=== PATIENT | female | born 1950 | race Caucasian/White ===

== ENCOUNTER 2020-06-05 23:02 | Emergency (ER) | payer MEDICARE ==
[~2020-06-05 23:02] MED LIST: AUGMENTIN 875-1 EACH PO; COLESTID 1GM TAB1 GM PO; K-DUR20 MEQ PO; LASIX20 MG PO; LASIX40 MG PO; LEVOTHYROXINE137 MCG PO; MEDROL 4MG DOSEP4 MG PO; MELOXICAM15 MG PO; METOPROLOL SUCC25 MG PO; OMEPRAZOLE40 MG PO; PERCOCET 10/321 EACH PO; ROBAXIN500 MG PO; TAMIFLU75 MG PO; TESSALON PERLE100 M1 PO; ZOLOFT100 MG PO; ZOLPIDEM 10MG T10 MG PO
[2020-06-06 00:48] LABS: ALBUMIN 3.7 g/dL (3.4-5.0); BILIRUBIN - TOTAL 0.9 mg/dL (0.2-1.0); BUN/CREAT RATIO (CALC) 22.2 RATIO; C-REACTIVE PROTEIN 0.8 mg/dL (<=0.90); CREATININE 0.81 mg/dL (0.51-0.95); GLOBULIN (CALCULATION) 3.5 g/dL; POTASSIUM 4.2 mmol/L (3.5-5.1); TOTAL PROTEIN 7.2 g/dL (6.4-8.2)
[2020-06-06] MEDS ORDERED: FLEXERIL5 MG PO (01:45)
== END 2020-06-06 02:03 | disposition home or self-care (01) ==
LOC: FER 23:02
PROVIDERS: Emergency Medicine
DX: M50.01 Cervical disc disorder with myelopathy, high cervical region (principal); M50.11 Cervical disc disorder with radiculopathy, high cervical region
CPT/HCPCS: 36415; 72125; 80053; 84145; 86140; 93005; J1170; J2060; J2405; J7030

== ENCOUNTER 2020-08-26 09:55 | Emergency (ER) | payer OTHER, MEDICARE ==
[~2020-08-26 09:55] MED LIST changes: +FLEXERIL5 MG PO
[2020-08-26] MEDS ORDERED: ATIVAN0.5 MG PO (14:56)
[2020-08-26] MEDS ORDERED: ANTIVERT25 MG PO (14:56)
== END 2020-08-26 15:00 | disposition home or self-care (01) ==
LOC: FER 09:55
DX: S13.4XXA Sprain of ligaments of cervical spine, initial encounter (principal); S23.3XXA Sprain of ligaments of thoracic spine, initial encounter; F41.9 Anxiety disorder, unspecified; I50.9 Heart failure, unspecified; Z79.899 Other long term (current) drug therapy; V49.40XA Driver injured in collision with unspecified motor vehicles in traffic accident, initial encounter; Y92.410 Unspecified street and highway as the place of occurrence of the external cause
CPT/HCPCS: 72072; 72125; 93005

== ENCOUNTER 2021-01-06 17:10 | Emergency (ER) | payer OTHER, MEDICARE ==
[~2021-01-06 17:10] MED LIST changes: +ANTIVERT25 MG PO; +ATIVAN0.5 MG PO
== END 2021-01-06 20:45 | disposition home or self-care (01) ==
LOC: FER 17:10
DX: S46.911A Strain of unspecified muscle, fascia and tendon at shoulder and upper arm level, right arm, initial encounter (principal); S63.602A Unspecified sprain of left thumb, initial encounter; S80.812A Abrasion, left lower leg, initial encounter; I10 Essential (primary) hypertension; W01.0XXA Fall on same level from slipping, tripping and stumbling without subsequent striking against object, initial encounter; Y92.512 Supermarket, store or market as the place of occurrence of the external cause
CPT/HCPCS: 73030; 73140; 90471; 90715

== ENCOUNTER 2021-01-13 18:05 | Emergency (ER) | payer MEDICARE ==
[2021-01-13] MEDS ORDERED: NORCO 5-325 TA1 EACH PO ×3 (22:35→22:42)
[2021-01-13] MEDS ORDERED: KETOROLAC TROME10 MG PO (22:38)
== END 2021-01-13 23:01 | disposition home or self-care (01) ==
LOC: FER 18:05
DX: S46.911A Strain of unspecified muscle, fascia and tendon at shoulder and upper arm level, right arm, initial encounter (principal); I10 Essential (primary) hypertension; W19.XXXA Unspecified fall, initial encounter
CPT/HCPCS: 71046; 73030; J1100; J1885

== ENCOUNTER 2021-04-14 18:48 | Emergency (ER) | payer MEDICARE ==
[~2021-04-14 18:48] MED LIST changes: +KETOROLAC TROME10 MG PO; +NORCO 5-325 TA1 EACH PO
[2021-04-14 20:00] LABS: BASOPHIL 0.4 % (0-2); EOSINOPHIL 1.5 % (0-7); HCT 40.7 % (37.0-47.0); HGB 13.4 g/dl (12.5-16.0); MCH 31.5 pg (25.0-31.0); MCHC 32.9 g/dL (32.0-36.0); MCV 95.8 fL (78.0-100.0); MONOCYTE 5.9 % (0-12); NEUTROPHIL 87.5 % (41-80); NRBC 0; PLT 271 K/uL (150-400); RBC 4.25 M/uL (4.20-5.40); RDW 14.3 % (11.5-14.0); WBC 14.2 K/uL (4.0-10.5)
[2021-04-14 20:08] LABS: INR 1.02 (0.9-1.2); PROTHROMBIN TIME 12.8 SECONDS (11.8-13.4); PTT 30.4 SECONDS (24.4-34.7)
[2021-04-14 20:30] LABS: CREATININE 1.12 mg/dL (0.51-0.95); POTASSIUM 3.9 mmol/L (3.5-5.1)
[2021-04-14 20:33] LABS: ALBUMIN 3.6 g/dL (3.4-5.0); BILIRUBIN - TOTAL 1.8 mg/dL (0.2-1.0); CORONAVIRUS 2019 SARS-COV-2 NEGATIVE (NEGATIVE); INFLUENZA A NAA NEGATIVE (NEGATIVE); MAGNESIUM 1.9 mg/dL (1.8-2.4); TOTAL PROTEIN 6.6 g/dL (6.4-8.2)
[2021-04-14] MEDS ORDERED: PROTONIX 40MG T40 MG PO (23:21)
[2021-04-14] MEDS ORDERED: NORCO 5-325 TA1 EACH PO (23:21)
[2021-04-14] MEDS ORDERED: ONDANSETRON ODT4 MG PO (23:21)
== END 2021-04-14 23:40 | disposition home or self-care (01) ==
LOC: FER 18:48
PROVIDERS: Internal Medicine
DX: R07.89 Other chest pain (principal); R10.9 Unspecified abdominal pain; N17.9 Acute kidney failure, unspecified; Z20.822 Contact with and (suspected) exposure to COVID-19; Z91.041 Radiographic dye allergy status
CPT/HCPCS: 36415; 71045; 71250; 80053; 83690; 83735; 83880; 84145; 84484; 85025; 85610; 85730; 93005; J1170; J2405; J7030; U0002

== ENCOUNTER 2021-08-02 21:54 | Emergency (ER) | payer MEDICARE ==
[~2021-08-02 21:54] MED LIST changes: +ONDANSETRON ODT4 MG PO; +PROTONIX 40MG T40 MG PO
[2021-08-02 23:23] LABS: EOSINOPHIL 5.2 % (0-7); HCT 38.6 % (37.0-47.0); LYMPHOCYTE 27.6 % (15-48); MCH 31.2 pg (25.0-31.0); MCHC 33.7 g/dL (32.0-36.0); MCV 92.6 fL (78.0-100.0); MONOCYTE 7.9 % (0-12); MPV 10.3 fL (6.0-9.5); NEUTROPHIL 57.9 % (41-80); NRBC 0; PLT 293 K/uL (150-400); RBC 4.17 M/uL (4.20-5.40); RDW 13.8 % (11.5-14.0); WBC 10.5 K/uL (4.0-10.5)
[2021-08-02 23:42] LABS: INR 1.06 (0.9-1.2); PROTHROMBIN TIME 13.2 SECONDS (11.8-13.4)
[2021-08-02 23:43] LABS: PTT 38.4 SECONDS (24.4-34.7)
[2021-08-02 23:50] LABS: ALBUMIN 3.8 g/dL (3.4-5.0); BILIRUBIN - TOTAL 1.1 mg/dL (0.2-1.0); BUN/CREAT RATIO (CALC) 11.6 RATIO; CREATININE 0.86 mg/dL (0.51-0.95); GLOBULIN (CALCULATION) 3.1 g/dL; POTASSIUM 3.6 mmol/L (3.5-5.1); TOTAL PROTEIN 6.9 g/dL (6.4-8.2)
== END 2021-08-03 03:35 | disposition home or self-care (01) ==
LOC: FER 21:54
PROVIDERS: Emergency Medicine
DX: R07.89 Other chest pain (principal); M25.512 Pain in left shoulder; I10 Essential (primary) hypertension; E03.9 Hypothyroidism, unspecified; Z91.041 Radiographic dye allergy status; Z79.899 Other long term (current) drug therapy; Z79.890 Hormone replacement therapy
CPT/HCPCS: 36415; 71045; 80053; 83880; 84484; 85025; 85610; 85730; 93005; J2270

== ENCOUNTER 2021-09-22 12:54 | Emergency (ER) | payer MEDICARE ==
[2021-09-22 14:28] LABS: BASOPHIL 1.1 % (0-2); EOSINOPHIL 4.3 % (0-7); HGB 13.4 g/dl (12.5-16.0); LYMPHOCYTE 22.1 % (15-48); MCH 30.9 pg (25.0-31.0); MCHC 33.5 g/dL (32.0-36.0); MCV 92.2 fL (78.0-100.0); MONOCYTE 7.7 % (0-12); MPV 10.5 fL (6.0-9.5); NEUTROPHIL 64.4 % (41-80); NRBC 0; PLT 305 K/uL (150-400); RBC 4.34 M/uL (4.20-5.40); RDW 13.9 % (11.5-14.0)
[2021-09-22 15:08] LABS: ALBUMIN 3.6 g/dL (3.4-5.0); BILIRUBIN - TOTAL 1.1 mg/dL (0.2-1.0); BUN/CREAT RATIO (CALC) 16.1 RATIO; CREATININE 0.93 mg/dL (0.51-0.95); GLOBULIN (CALCULATION) 3.1 g/dL; POTASSIUM 3.7 mmol/L (3.5-5.1); TOTAL PROTEIN 6.7 g/dL (6.4-8.2)
[2021-09-22 16:01] LABS: BILIRUBIN NEGATIVE (NEGATIVE); BLOOD NEGATIVE Ery/uL (NEGATIVE); CLARITY CLEAR (CLEAR); COLOR YELLOW (YELLOW); GLUCOSE (U) NORMAL (NORMAL); LEUKOCYTES NEGATIVE Leu/uL (NEGATIVE); NITRITE NEGATIVE (NEGATIVE); PROTEIN NEGATIVE (NEGATIVE); SPECIFIC GRAVITY <=1.005 (1.001-1.030); UROBILINOGEN 0.2 mg/dL (0.2-1.0)
[2021-09-22] MEDS ORDERED: NORCO 5-325 TA1 EACH PO (16:04)
== END 2021-09-22 16:24 | disposition home or self-care (01) ==
LOC: FER 12:54
PROVIDERS: Emergency Medicine
DX: R10.32 Left lower quadrant pain (principal); M16.12 Unilateral primary osteoarthritis, left hip; M51.36 Other intervertebral disc degeneration, lumbar region; Z91.041 Radiographic dye allergy status
CPT/HCPCS: 36415; 80053; 81003; 85025; J2270; J2405

== ENCOUNTER 2021-10-04 21:13 | Emergency (ER) | payer MEDICARE ==
[2021-10-05] MEDS ORDERED: PERCOCET 5-3251 EACH PO (02:48)
== END 2021-10-05 03:00 | disposition home or self-care (01) ==
LOC: FER 21:13
DX: M25.511 Pain in right shoulder (principal); M25.552 Pain in left hip
CPT/HCPCS: 73030; 73502; J1170

== ENCOUNTER 2021-10-17 22:15 | Emergency (ER) | payer MEDICARE ==
[~2021-10-17 22:15] MED LIST changes: +PERCOCET 5-3251 EACH PO
[2021-10-18] MEDS ORDERED: NORCO 5/3251 EACH PO (00:26)
== END 2021-10-18 00:52 | disposition home or self-care (01) ==
LOC: FER 22:15
DX: G89.29 Other chronic pain (principal); M25.552 Pain in left hip; M25.511 Pain in right shoulder; M54.2 Cervicalgia; I11.0 Hypertensive heart disease with heart failure; I50.9 Heart failure, unspecified
CPT/HCPCS: 99283; J1170

== ENCOUNTER 2021-11-01 17:55 | Emergency (ER) | payer MEDICARE ==
[~2021-11-01 17:55] MED LIST changes: +NORCO 5/3251 EACH PO
[2021-11-01 18:34] LABS: BASOPHIL 0.4 % (0-2); EOSINOPHIL 3.5 % (0-7); HCT 36.3 % (37.0-47.0); HGB 11.9 g/dl (12.5-16.0); LYMPHOCYTE 3.6 % (15-48); MCH 30.6 pg (25.0-31.0); MCHC 32.8 g/dL (32.0-36.0); MCV 93.3 fL (78.0-100.0); MONOCYTE 2.8 % (0-12); MPV 9.6 fL (6.0-9.5); NRBC 0; PLT 375 K/uL (150-400); RBC 3.89 M/uL (4.20-5.40); RDW 15.3 % (11.5-14.0); WBC 14.7 K/uL (4.0-10.5)
[2021-11-01 18:36] LABS: BILIRUBIN 1+ mg/dL (NEGATIVE); BLOOD NEGATIVE Ery/uL (NEGATIVE); CLARITY CLEAR (CLEAR); COLOR YELLOW (YELLOW); GLUCOSE (U) NORMAL (NORMAL); LEUKOCYTES NEGATIVE Leu/uL (NEGATIVE); NITRITE NEGATIVE (NEGATIVE); PROTEIN NEGATIVE (NEGATIVE); SPECIFIC GRAVITY 1.025 (1.001-1.030); UROBILINOGEN 0.2 mg/dL (0.2-1.0)
[2021-11-01 18:45] LABS: ALBUMIN 3.9 g/dL (3.4-5.0); BILIRUBIN - TOTAL 1.5 mg/dL (0.2-1.0); BUN/CREAT RATIO (CALC) 20.2 RATIO; CREATININE 1.09 mg/dL (0.51-0.95); GLOBULIN (CALCULATION) 3.6 g/dL; POTASSIUM 3.9 mmol/L (3.5-5.1); TOTAL PROTEIN 7.5 g/dL (6.4-8.2)
[2021-11-01 18:52] LABS: LACTIC ACID 1.1 mmol/L (0.4-1.9)
[2021-11-01] MEDS ORDERED: BACTRIM DS TAB1 EACH PO (19:41)
== END 2021-11-01 20:04 | disposition home or self-care (01) ==
LOC: FER 17:55
PROVIDERS: Emergency Medicine
DX: M25.552 Pain in left hip (principal); I10 Essential (primary) hypertension
CPT/HCPCS: 36415; 71045; 73700; 80053; 81003; 83605; 84145; 85025; 87040; 87088; 93005; J7040